=== PATIENT | male | born 1955 | race American Indian/Alaskan Native ===

== ENCOUNTER 2021-03-05 14:11 | Outpatient (CLI) | payer OTHER ==
--- NOTE | 2021-03-05 17:50 | Magnetic Resonance Report ---
MR brain wo/w con INDICATION / CLINICAL INFORMATION: 65 years Male; LEFT HEARING LOSS. TECHNIQUE: Multiplanar, multisequence MRI of the IACs and brain COMPARISON: None available. FINDINGS: IACS: No significant abnormality of the inner ear structures, internal auditory canals, or cerebellop ontine angles. Normal signal intensity seen in the cochlea, vestibule, and semicircular canals. VII-V III complex is normal in appearance bilaterally. No abnormality seen in the wil. INTRACRANIAL: No restricted diffusion. No hemorrhage. Ventricular caliber is normal. No extra-axial c ollection. No mass. No herniation. Major intracranial vascular flow voids are preserved. Small quant ity of scattered T2 white matter hyperintensities most consistent with sequela of chronic microvascul ar disease. ORBITS: No significant abnormality of visualized orbits. SINUSES / MASTOIDS: No significant abnormality of visualized sinuses and mastoid air cells. ADDITIONAL FINDINGS: None. IMPRESSION: 1. No significant abnormality. Signer Name: Magan Gonzalez MD Signed: 03/05/2021 5:45 PM Workstation Name: [id number]
== END 2021-03-05 14:12 | disposition home or self-care (01) ==
LOC: MRI 14:11
PROVIDERS: ATTEND Otolaryngology
DX: H90.5 Unspecified sensorineural hearing loss (principal)
CPT/HCPCS: 70553; A9575